=== PATIENT | female | born 1970 | race Caucasian/White ===

== ENCOUNTER 2017-12-13 09:45 | Emergency (ER) | payer MEDICAID ==
[~2017-12-13] VITALS: Ht 154.9 cm; Wt 61.2 kg
[2017-12-13] MEDS ORDERED: HYDR-3326 PO (10:01)
--- NOTE | 2017-12-13 10:10 | NUR ---
Dr Pantoja at the bedside for MSE.
[2017-12-13] MEDS ORDERED: KETOROLAC TROMETHAMINE 15 MG INJ IV ONE (10:15)
[2017-12-13] MEDS ORDERED: KETOROLAC TROMETHAMINE 30 MG INJ ONE (10:15)
[2017-12-13] MEDS ORDERED: IV NORMAL SALINE 1000 ML BAG IV ONE (10:15)
[2017-12-13 10:39] LABS: BASOPHILS % (AUTO) 0.5 % (0.0-2.0); EOSINOPHILS # (AUTO) 0.3 K/uL (0.0-0.7); EOSINOPHILS % (AUTO) 3.1 % (0.0-7.0); HEMATOCRIT 34.1 % (31.2-41.9); HEMOGLOBIN 11.6 g/dL (10.9-14.3); LYMPHOCYTES # (AUTO) 1.9 K/uL (20.0-40.0); LYMPHOCYTES % (AUTO) 19.9 % (20.5-51.5); MEAN CORPUSCULAR HEMOGLOBIN 30.7 uug (24.7-32.8); MEAN CORPUSCULAR HGB CONC 34 g/dL (32.3-35.6); MEAN CORPUSCULAR VOLUME 90.6 fL (75.5-95.3); MONOCYTES % (AUTO) 10.2 % (0.0-11.0); NEUTROPHILS # (AUTO) 6.2 K/uL (1.8-8.9); NEUTROPHILS % (AUTO) 66.3 % (38.5-71.5); PLATELET COUNT (AUTO) 286 K/uL (179-408); RED BLOOD CELL COUNT(AUTO) 3.76 MIL/uL (3.63-4.92); WHITE BLOOD COUNT (AUTO) 9.4 K/uL (3.8-11.8)
[2017-12-13] MEDS ORDERED: TAMSULOSIN HCL 0.4 MG CAP.SR.24H ONE (10:41)
[2017-12-13] MEDS ORDERED: ONDANSETRON 4 MG/2 ML VIAL ONE (10:41)
[2017-12-13 10:45] LABS: POTASSIUM 3.9 mmol/L (3.5-5.1)
[2017-12-13] MEDS ORDERED: ONDANSETRON 4 MG/2 ML VIAL IV ONE (10:45)
[2017-12-13] MEDS ORDERED: TAMSULOSIN HCL 0.4 MG CAP.SR.24H PO ONE (10:45)
--- NOTE | 2017-12-13 10:45 | NUR ---
Pt states feeling better and able to urinate. Urine collected and sent to LAB.
[2017-12-13 11:14] LABS: *BILIRUBIN,URIN NEGATIVE (NEGATIVE); *BLOOD, URINE Trace-intact (NEGATIVE); *CLARITY,URINE CLEAR (CLEAR); *COLOR,URINE YELLOW (YELLOW); *KETONES,URINE NEGATIVE (NEGATIVE); *PROTEIN,URINE NEGATIVE (NEGATIVE); *UROBILINOGEN,URINE 0.2 E.U./dl (NORMAL); LEUKOCYTE ESTERASE ,URINE NEGATIVE (NEGATIVE); NITRITE, URINE NEGATIVE (NEGATIVE); UGLUCOSE NEGATIVE (NEGATIVE)
[2017-12-13 11:22] LABS: BACTERIA,URINE NONE SEEN /HPF (NONE SEEN); SQUAMOUS EPITHELIAL CELL,UR FEW /HPF (NONE SEEN); WBC,URINE 0-3 /HPF (0-3)
--- NOTE | 2017-12-13 11:48 | NUR ---
IV removed. Catheter intact and site benign. Pressure and 4x4 gauze applied to site. No bleeding noted.
[2017-12-13 11:49] VITALS: BP 127/77
--- NOTE | 2017-12-13 11:50 | NUR ---
Patient discharged to home in stable conditon. Written and verbal after care instructions given. Patient verbalizes understanding of instructions.
== END 2017-12-13 11:50 | disposition home or self-care (01) ==
LOC: ER 09:45
DX: N13.30 Unspecified hydronephrosis (principal); N20.0 Calculus of kidney; Z79.891 Long term (current) use of opiate analgesic
CPT/HCPCS: 36415; 84703; 85025; A4663; J1885; J2405; J7030